=== PATIENT | female | born 1990 | race Caucasian/White ===

== ENCOUNTER → 2024-05-06 13:34 | Outpatient (REF) | payer OTHER, SELFPAY | LOC: RAD 13:34 | PROVIDERS: ATTENDING PHYSICIAN Nurse Practitioner Family | DX: R06.89 Other abnormalities of breathing (principal) | CPT/HCPCS: 71046 ==

== ENCOUNTER → 2025-01-12 09:45 | Outpatient (REF) | payer OTHER, SELFPAY | LOC: WDC 09:45 | PROVIDERS: ATTENDING PHYSICIAN Family Medicine | DX: N63.13 Unspecified lump in the right breast, lower outer quadrant (principal) | CPT/HCPCS: 76642; 77062; 77066 ==

== ENCOUNTER → 2025-05-22 10:55 | Outpatient (REF) | payer OTHER, SELFPAY | LOC: OHS 10:55 | PROVIDERS: ATTENDING PHYSICIAN Nurse Practitioner Family | DX: Z23 Encounter for immunization (principal) | CPT/HCPCS: 36415; 86480; 86706; 86735; 86762; 86765; 86787 ==

== ENCOUNTER → 2025-05-30 11:30 | Outpatient (REF) | payer OTHER, SELFPAY | LOC: UCDH 11:30 | PROVIDERS: ATTENDING PHYSICIAN Physician Assistant; FAMILY PHYSICIAN Family Medicine | DX: S89.92XA Unspecified injury of left lower leg, initial encounter (principal) | CPT/HCPCS: 73564; 73610; 73630 ==

== ENCOUNTER → 2025-06-03 19:08 | Outpatient (REF) | payer OTHER, SELFPAY | LOC: MRI 19:08 | PROVIDERS: ATTENDING PHYSICIAN Student in an Organized Health Care Education/Training Program; FAMILY PHYSICIAN Family Medicine | DX: M25.572 Pain in left ankle and joints of left foot (principal); M79.672 Pain in left foot | CPT/HCPCS: 73718; 73721 ==

== ENCOUNTER → 2025-06-08 11:38 | Outpatient (REF) | payer OTHER, SELFPAY | LOC: PAVMRI 11:38 | PROVIDERS: ATTENDING PHYSICIAN Student in an Organized Health Care Education/Training Program; FAMILY PHYSICIAN Family Medicine | DX: S82.832A Other fracture of upper and lower end of left fibula, initial encounter for closed fracture (principal) | CPT/HCPCS: 73721 ==

== ENCOUNTER 2025-06-10 06:24 | Day surgery (SDC) | payer OTHER, SELFPAY ==
[2025-06-10 14:15] VITALS: BP 117/77
[2025-06-10] MEDS: NORMOSOL-R/PLASMALYTE-A 1000 IV (14:15)
[2025-06-10 14:25] VITALS: BMI 26.6
[2025-06-10 14:26] VITALS: BMI 26.6
[2025-06-10] MEDS: CELEBREX 200 MG PO (14:31)
[2025-06-10] MEDS: TYLENOL PO (14:32)
[2025-06-10] MEDS: TYLENOL 1000 MG PO (17:49)
[2025-06-10] MEDS: ROXICODONE 5 MG PO (19:10)
[2025-06-10 23:47] VITALS: BP 109/58; BP 137/77
[2025-06-11] VITALS (7 sets, daily range): BP systolic 100–115; BP diastolic 62–77
[2025-06-11] MEDS: DILAUDID 0.25 MG IV (00:10)
[2025-06-11] MEDS: ROXICODONE 5 MG PO (00:42)
--- NOTE | 2025-06-12 15:56 | OR.RPT ---
Operative Report
Operative Report
Patient Name: Christiano Pandey

Date of Surgery: 06/10/2025
Surgeon: Malik Santana DPM
Professor Of Business Administration: Malik Chopra DPM
Pre-operative diagnosis:
Left syndesmotic injury with proximal fibula fracture (Maissoneuve); left nondisplaced metatarsal fractures; left posterior malleolus fracture
Post-operative diagnosis:
Same as preoperative
Procedure:
Open reduction and internal fixation (ORIF) of left bimalleolar ankle fracture (CPT 84256)
Syndesmotic stabilization with fixation (CPT 00442)
Anesthesia:
General anesthesia with 20ccs of 0.5% bupivacaine plain
Hemostasis:
Pneumatic thigh tourniquet which was inflated to 300mmHg for the entirety of the procedure
Estimated blood loss:
Minimal
Specimens:
None
Implants:
Robert 4-hole distal fibula plate
2 Robert cortical screws
2 Arthrex TightRope syndesmotic devices
Complications:
None
Indications for Procedure:
The patient is a 35 year old female sustained a left proximal fibula fracture (Maisonneuve), nondisplaced metatarsal fractures, and a posterior malleolus fracture after injury. MRI confirmed disruption of the syndesmosis. Given the instability
pattern, posterior malleolar involvement, and syndesmotic injury, operative fixation was indicated to restore ankle mortise congruity, prevent chronic instability, and allow appropriate healing. Risks, benefits, and alternatives of surgery were
discussed and the patient elected to proceed with surgical management.
Description of Procedure:
The patient was brought to the operating room, placed supine, and general anesthesia was administered. A pneumatic thigh tourniquet was applied. The left lower extremity was prepped and draped in the standard sterile fashion. A timeout was completed.
A lateral incision was made over the distal fibula. Blunt dissection was carried down taking care to protect all neurovascular structures. Dissection was then carried down to the bone while preserving soft tissue attachments. The ankle mortise was
assessed and found to be unstable with external rotation stress.
A Robert 4-hole fibular plate was positioned along the lateral fibula. The plate was secured with two appropriately sized cortical screws after achieving anatomic alignment. Fluoroscopic imaging confirmed proper plate position.
Attention was then directed to the syndesmosis. Under fluoroscopic guidance, two Arthrex TightRope devices were placed through the plate and tibia following standard technique. Each TightRope was tensioned until stable congruity of the ankle mortise
was achieved. External rotation and Cotton tests confirmed syndesmotic stability.
The posterior malleolus fracture was non-displaced and stable following fibular and syndesmotic fixation; no direct instrumentation was required. Following fixation, excellent stability was noted to the proximal fibula fracture. Metatarsal fractures
remained nondisplaced.
The surgical site was irrigated thoroughly. Layered closure was performed with 2-0 Vicryl for deep tissues , 3-0 vicryl for subcutaneous tissues, and 3-0 nylon for skin. The tourniquet was deflated and brisk capillary refill was noted with excellent
perfusion back to the foot.
A well-padded posterior splint was applied. The patient tolerated the procedure without complication and was transferred to recovery in stable condition.
Postoperative Plan:
Strict non-weightbearing to the left lower extremity
Elevation and icing as needed for swelling control
Maintain splint until follow-up
Radiographs at first postoperative visit in 2 weeks
Transition to cast or boot depending on soft tissue status
Begin progressive weightbearing only after radiographic evidence of healing and stabilization
== END 2025-06-11 01:00 | disposition home or self-care (01) ==
LOC: SDS 06:24
PROVIDERS: ATTENDING PHYSICIAN Student in an Organized Health Care Education/Training Program
DX: S82.832A Other fracture of upper and lower end of left fibula, initial encounter for closed fracture (principal); S82.865A Nondisplaced Maisonneuve's fracture of left leg, initial encounter for closed fracture; S92.325A Nondisplaced fracture of second metatarsal bone, left foot, initial encounter for closed fracture; S92.335A Nondisplaced fracture of third metatarsal bone, left foot, initial encounter for closed fracture; S93.622A Sprain of tarsometatarsal ligament of left foot, initial encounter; W18.30XA Fall on same level, unspecified, initial encounter
CPT/HCPCS: 27814; 27829; C1713